=== PATIENT | female | born 1960 | race Asian ===

== ENCOUNTER 2018-03-07 09:47 | Emergency (ER) | payer OTHER | END 2018-03-07 11:24 | disposition home or self-care (01) | LOC: FTE 09:47 | DX: H10.13 Acute atopic conjunctivitis, bilateral (principal); I10 Essential (primary) hypertension | CPT/HCPCS: 99282; Z7502 ==

== ENCOUNTER 2019-03-05 09:44 | Day surgery (SDC) | payer OTHER ==
[2019-03-05] MEDS ORDERED: FENTAnyl 50 MCG/ML VIAL (12:07)
[2019-03-05] MEDS ORDERED: MIDAZOLAM 1 MG/ML 2 ML INJ ×2 (12:07)
== END 2019-03-05 17:49 | disposition home or self-care (01) ==
LOC: GIL 09:44
DX: R19.5 Other fecal abnormalities (principal); K64.4 Residual hemorrhoidal skin tags; K64.8 Other hemorrhoids; I10 Essential (primary) hypertension
CPT/HCPCS: 45378